=== PATIENT | female | born 1965 | race Caucasian/White ===

== ENCOUNTER → 2016-07-02 | Outpatient (CLI) | payer OTHER ==
--- NOTE | 2016-07-03 08:07 | KCIC ---
PROCEDURE Two view chest radiograph. HISTORY Congestion, cough and wheezing. TECHNIQUE Two-view chest radiograph was obtained. COMPARISON None. FINDINGS The lungs are clear. There is no pleural effusion. The heart is not enlarged. There is no definite heart failure. There are degenerative changes in the spine. IMPRESSION No acute thoracic findings. Electronically signed by: Norman Galvan MD (Jul 03, 2016 08:05:36)
== END | disposition home or self-care (01) ==
LOC: KCIC 16:27
PROVIDERS: ATTEND Family Medicine
DX: M47.899 Other spondylosis, site unspecified (principal)
CPT/HCPCS: 71020

== ENCOUNTER 2019-06-23 22:56 | Emergency (ER) | payer BC, OTHER ==
[~2019-06-23] VITALS: Ht 157.5 cm; Wt 82.6 kg
[2019-06-24 00:20] LABS: BASO # 0.1 x10^3/uL (0.0-0.2); BASO % 1 % (0-3); EOS # 0.3 x10^3/uL (0.0-0.7); EOS % 2 % (0-3); HEMATOCRIT 39.7 % (36.0-47.0); HEMOGLOBIN 12.5 g/dL (12.0-15.5); LYMPH # 2.2 x10^3/uL (1.0-4.8); LYMPH % 17 % (24-48); MEAN CORPUSCULAR HEMOGLOBIN 20 pg (25-35); MEAN CORPUSCULAR HGB CONC 32 g/dL (31-37); MEAN CORPUSCULAR VOLUME 62 fL (79-100); MONO # 0.8 x10^3/uL (0.0-1.1); MONO % 6 % (0-9); NEUT # 9.6 x10^3/uL (1.8-7.7); NEUT % 74 % (31-73); PLATELET COUNT 261 x10^3/uL (140-400); RED BLOOD COUNT 6.41 x10^6/uL (3.50-5.40); RED CELL DISTRIBUTION WIDTH 16.4 % (11.5-14.5)
[2019-06-24 00:21] LABS: BILIRUBIN,URINE NEGATIVE (NEG); CLARITY,URINE CLEAR; COLOR,URINE YELLOW; NITRITE,URINE NEGATIVE (NEG); PH,URINE 5.5; PROTEIN,URINE NEGATIVE (NEG-TRACE); UROBILINOGEN,URINE 0.2 mg/dL (0.2 mg/dL)
[2019-06-24 00:27] LABS: CREATININE 0.9 mg/dL (0.6-1.0); POTASSIUM 3.9 mmol/L (3.5-5.1)
[2019-06-24 00:34] LABS: ALBUMIN 3.5 g/dL (3.4-5.0); ALBUMIN/GLOBULIN RATIO 0.9 (1.0-1.7); TOTAL BILIRUBIN 0.3 mg/dL (0.2-1.0); TOTAL PROTEIN 7.3 g/dL (6.4-8.2)
[2019-06-24 00:37] LABS: AMORPHOUS SEDIMENT,UR PRESENT /HPF; BACTERIA,URINE 0 /HPF (0-FEW); RBC,URINE 0 /HPF (0-2); SQUAMOUS EPITHELIAL CELL,UR MOD /LPF
[2019-06-24] MEDS ORDERED: ONDANSETRON PF 4 MG/2 ML VIAL. IV ONE (01:15)
[2019-06-24] MEDS ORDERED: CONTRAST GIVEN. MC PRN (01:15)
[2019-06-24] MEDS ORDERED: MORPHINE SULFATE 4 MG/ML VIAL. IV ONE (01:15)
[2019-06-24 01:18] LABS: HYPOCHROMIA MARKED; MICROCYTOSIS MARKED; PLT ESTIMATE ADEQUATE (ADEQUATE)
[2019-06-24] MEDS ORDERED: IOHEXOL 300 MG/ML 100ML VIAL. IV ONE (01:30)
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
[2019-06-24] MEDS ORDERED: cefTRIAXone IV Push 1 GM VIAL. IVP ONE (03:00)
[2019-06-24] MEDS ORDERED: methylPREDNISolone SOD SUCC PF 125 MG/2 ML VIAL. IV ONE (03:00)
[2019-06-24] MEDS ORDERED: IPRATRPIUM/ALBUTEROL 0.5/2.5MG 3 ML NEBU. NEB ONE (03:00)
[2019-06-24] MEDS ORDERED: ALBU2.5V8 IH (03:34)
[2019-06-24] MEDS ORDERED: AZIT250T PO (03:34)
[2019-06-24] MEDS ORDERED: PRED20TA PO (03:34)
[2019-06-24] MEDS ORDERED: TRAM50TA PO (03:34)
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
[2019-06-24 03:51] VITALS: BP 129/75
--- NOTE | 2019-06-24 07:21 | RAD ---
EXAM: CHEST ONE VIEW. HISTORY: Cough, shortness of breath. COMPARISON: 07/02/2016. FINDINGS: A frontal view of the chest is obtained. The lungs are expanded to the 11th posterior interspaces. There are no confluent infiltrates. There is no pneumothorax or pleural effusion. The heart is not enlarged. There are atherosclerotic calcifications of the aorta. IMPRESSION: 1. Hyperinflation. Correlate for air trapping. No confluent infiltrates. Electronically signed by: David Luis MD (06/24/2019 7:18 AM) [facility]
== END 2019-06-24 03:45 | disposition home or self-care (01) ==
LOC: ER 22:56
DX: M54.5 Low back pain (principal); J44.9 Chronic obstructive pulmonary disease, unspecified; R10.32 Left lower quadrant pain; F17.200 Nicotine dependence, unspecified, uncomplicated; I10 Essential (primary) hypertension; Z98.51 Tubal ligation status; Z79.899 Other long term (current) drug therapy
CPT/HCPCS: 36415; 71045; 74177; 80053; 81001; 83690; 85025; 94640; 96374; 96375; 99285; J0696; J2270; J2405; J2930; J7620; Q9967

== ENCOUNTER → 2019-07-24 | Outpatient (CLI) | payer BC ==
[2019-06-24 03:51] VITALS: BP 129/75
[~2019-07-24] MED LIST: ALBU2.5V8 IH; AZIT250T PO; PRED20TA PO; TRAM50TA PO
--- NOTE | 2019-07-24 16:47 | KCIC ---
Bilateral digital screening mammograms: Reason for examination: Routine screening. Comparison is made to previous study dated 09/18/2015. Interpretation is made with the benefit of CAD. The skin and nipples show no abnormalities. No abnormal lymph nodes are seen. The breast parenchyma is predominantly fatty. (Breast density: Category A.) There are no dominant masses, suspicious calcifications or architectural distortions. Impression: No evidence of malignancy. Recommend routine screening. BI-RADS Category 1: Negative. "Our facility is accredited by the [employer] Mammography Program." This patient's information has been entered into a reminder system for the patient to be notified with the results of her examination and a target date for the next mammogram. Electronically signed by: Azalia Gordillo MD (07/24/2019 4:43 PM) [id number]
--- NOTE | 2019-07-25 08:15 | KCIC ---
EXAM: CT Maxillofacial without IV contrast INDICATION: Chronic sinusitis, drainage, headaches and congestion. Surgery to nose in 2004. TECHNIQUE: Multi-detector row CT images were obtained through the maxillofacial region without the use of IV contrast. Post-processing reconstructed images were obtained for interpretation. All CT scans performed at this facility utilize dose optimization techniques as appropriate to the exam, including the following: Automated exposure control and adjustment of the mA and/or KV according to patient size (this includes techniques or standardized protocols for targeted exams where dose is indication/reason for exam). COMPARISON: No relevant comparisons currently available FINDINGS: OSSEOUS: No evidence of fracture or bone destruction. The patient is edentulous in the maxilla and has a maxillary dental prosthesis. There are large dental caries in the bilateral mandibular molar teeth still present.. VISUALIZED INTRACRANIAL STRUCTURES: Unremarkable. ORBITS: Orbital contents are unremarkable.. SINUSES: Visualized paranasal sinuses and mastoid air cells are clear. Osteomeatal complexes show minimal mucosal thickening on the middle and inferior turbinates and there is minimal mucosal thickening in the left anterior ethmoid air cell but otherwise they are unremarkable. Trace air-fluid level in the left diminutive sphenoid sinus. The spheno-ethmoid ostium is widely patent. SOFT TISSUES: Unremarkable. IMPRESSION: Minimal evidence of sinus inflammatory disease, as described. Electronically signed by: Lazaro Griffin MD (07/25/2019 8:12 AM) [facility]
== END | disposition home or self-care (01) ==
LOC: KCIC CT 14:59
PROVIDERS: ATTEND Family Medicine
DX: Z12.31 Encounter for screening mammogram for malignant neoplasm of breast (principal); J32.8 Other chronic sinusitis
CPT/HCPCS: 70486; 77067